=== PATIENT | female | born 1955 | race Caucasian/White ===

== ENCOUNTER 2017-09-05 07:33 | Emergency (ER) | payer OTHER, BC ==
[2017-09-05 07:33] VITALS: BMI 34.7
--- NOTE | 2017-09-05 07:56 | C.PDOC ---
History Of Present Illness 61 y/o female, employee of hospital, presents to the ER for evaluation of lightheadedness after she got stuck in the elevator in the parking garage today. Patient states she was stuck in elevator for about 20 minutes. Patient states that she did not panic while was stuck in the elevator. She started feeling lightheadedand SOB after she exited the elevator. She wants to get checked out. Denies having wheezing, or history of respiratory issues. Time Seen by Provider: 09/05/17 07:46 Chief Complaint (Nursing): Dizziness/Lightheaded History Per: Patient History/Exam Limitations: no limitations Onset/Duration Of Symptoms: Hrs Current Symptoms Are (Timing): Still Present Severity: Moderate Past Medical History Reviewed: Historical Data, Nursing Documentation, Vital Signs Vital Signs: Last Vital Signs Temp 98.3 F 09/05/17 07:38 Pulse 80 09/05/17 07:38 Resp 18 09/05/17 08:03 BP 137/84 09/05/17 07:38 Pulse Ox 96 09/05/17 08:35 - Medical History PMH: HTN Surgical History: Cholecystectomy - [facility] Procedures COLONOSCOPY (02/21/13) INFLUENZA VACCINATION (01/08/13) OTHER OPEN INCISIONAL HERNIA REPAIR WITH GRAFT OR PROSTHESIS (01/08/13) Family History: States: No Known Family Hx - Social History Hx Tobacco Use: No Hx Alcohol Use: No Hx Substance Use: No - Immunization History Hx Tetanus Toxoid Vaccination: Yes Hx Influenza Vaccination: Yes Hx Pneumococcal Vaccination: No Review Of Systems Constitutional: Negative for: Fever, Chills, Weakness, Malaise Eyes: Negative for: Vision Change Cardiovascular: Positive for: Light Headedness. Negative for: Chest Pain, Palpitations Respiratory: Positive for: Shortness of Breath. Negative for: Cough Physical Exam - Physical Exam Appears: Non-toxic, No Acute Distress Skin: Normal Color, Warm, Dry, No Rash Head: Atraumatic, Normacephalic Eye(s): bilateral: Normal Inspection, EOMI Nose: Normal Neck: Supple Chest: Symmetrical Cardiovascular: Rhythm Regular, No Murmur Respiratory: Normal Breath Sounds, No Rales, No Rhonchi, No Wheezing Extremity: Bilateral: Atraumatic, Normal Color And Temperature, Normal ROM Neurological/Psych: Oriented x3, Normal Speech Gait: Steady ED Course And Treatment O2 Sat by Pulse Oximetry: 96 (RA) Pulse Ox Interpretation: Normal Medical Decision Making Medical Decision Making: Patient was stuck in elevator and complains of feeling lightheaded and SOB. She refused EKG. Patient given oxygen via nasal cannula. Patient observed in ED for an hour. On re-evaluation, patient resting comfortably on stretcher and reports feeling much better. Lungs clear bilaterally, normal heart sounds, no headache dizziness numbness or weakness. Patient feels comfortable being discharge and going to work. Disposition Counseled Patient/Family Regarding: Need For Followup - Disposition Disposition: HOME/ ROUTINE Disposition Time: 08:55 Condition: GOOD Additional Instructions: You were evaluated in our Emergency Department for feeling lightheaded. You are stable to return to work. Forms: [employer] (German), General Discharge Instructions - POA Present On Arrival: None - Clinical Impression Clinical Impression: Light-headed feeling - PA / CONSOLE ATTENDANT / Resident Statement MD/DO has reviewed & agrees with the documentation as recorded. - Scribe Statement The provider has reviewed the documentation as recorded by the Adis Brown Provider Attestation All medical record entries made by the Scribe were at my direction and personally dictated by me. I have reviewed the chart and agree that the record accurately reflects my personal performance of the history, physical exam, medical decision making, and the department course for this patient. I have also personally directed, reviewed, and agree with the discharge instructions and disposition.
[2017-09-05 09:02] VITALS: BP 123/82; PULSE 72; RESP 16; TEMP 97.9
[2017-09-05 09:10] VITALS: O2SAT 96
== END 2017-09-05 09:08 | disposition home or self-care (01) ==
LOC: C.ER 07:33
DX: R42 Dizziness and giddiness (principal)